=== PATIENT | female | born 1940 | race Caucasian/White ===

== ENCOUNTER 2018-03-14 17:42 | Emergency (ER) | payer OTHER, BC ==
--- NOTE | 2018-03-14 19:14 | EDPHY ---
H & P Stated Complaint: FELL SATURDAY/?COCCYX FX ON XRAYS TODAY Time Seen by Provider: 03/14/18 18:37 HPI/ROS: CHIEF COMPLAINT: Buttock pain HISTORY OF PRESENT ILLNESS: This is a 77-year-old female with a history of coronary artery disease and COPD who presents 4 days after a fall onto her buttocks. This was a mechanical fall. She did not initially have pain but a couple of days later, when she got out of bed, she reports back pain. She has been traveling. She was seen by a doctor in [place] who prescribed Flexeril and tramadol. She has been taking the tramadol twice daily and the Flexeril once daily. She continues with pain which she states is in her left buttock, sometimes radiating into the hip. She has not had numbness and is not aware of weakness but it is painful when she tries to move or walk. She denies bowel or bladder problems. She was seen at [facility] today and Xrays of the lumbar sacral spine film was obtained. Xrays show an L4-5 grade 1 spondylolisthesis. She was advised to be evaluated in the emergency department , apparently because of this x-ray finding. REVIEW OF SYSTEMS: A ten point review of systems was performed and is negative with the exception of the items mentioned in the HPI. Past medical history: 1. Coronary artery disease status post stenting 2. Pacemaker/defibrillator 3. COPD with continue tobacco abuse 4. Uterine cancer, sarcoma Past surgical history: 1. Pacemaker 2. Hysterectomy Social history: She is here visiting family but used to live in [place]. She smokes cigarettes daily but tells me she quit 2 weeks ago. Daily single alcoholic beverage. General Appearance: Alert. Vital signs reviewed. Eyes: Pupils equal and round, no conjunctival injection, no discharge. Anicteric. ENT, Mouth: Mucous membranes are moist, no oropharyngeal erythema or edema. Neck: No lymphadenopathy, supple. Respiratory: Lungs are clear to auscultation; no wheezes, rales, or rhonchi. Cardiovascular: Regular rate and rhythm; no murmur, rub, or gallop. Gastrointestinal: Abdomen is soft and nontender, no masses or organomegaly, bowel sounds normal. Skin: Warm and dry, no rashes on exposed skin, normal color. Back: Nontender to palpation over the thoracolumbar spine. No CVAT. Extremities: No lower extremity edema, no calf tenderness or swelling. Neurological: Alert and oriented. Moving all four extremities easily and equally, but complains of pain when she moves to sit or get up out of the bed. She has tenderness with palpation of the left buttock in the sciatic notch region. Strength is 5/5 with bilateral testing of hip flexion, hip extension, knee flexion, knee extension, plantar flexion, dorsiflexion, and EHL. She is able to walk although her gait is somewhat antalgic because of pain. She does not have a footdrop. Sensation is intact to light touch over both lower extremities. Deep tendon reflexes are 2+ in the knees and the right ankle, absent in the left ankle. Psychiatric: Normal affect. - Personal History Current Tetanus Diphtheria and Acellular Pertussis (TDAP): Yes - Medical/Surgical History Hx Asthma: No Hx Chronic Respiratory Disease: Yes Hx Diabetes: No Hx Cardiac Disease: Yes Hx Renal Disease: No Hx Cirrhosis: No Hx Alcoholism: No Hx HIV/AIDS: No Hx Splenectomy or Spleen Trauma: No Other PMH: CARDIAC STENTS/PACEMAKER/DEFIB COPD OSTEOPENIA - Social History Smoking Status: Former smoker Constitutional: Initial Vital Signs Temperature (C) 37.4 C 03/14/18 18:03 Heart Rate 85 03/14/18 18:03 Respiratory Rate 18 03/14/18 18:03 Blood Pressure 116/73 03/14/18 18:03 O2 Sat (%) 90 L 03/14/18 18:03 O2 Delivery Mode Room Air Allergies/Adverse Reactions: Sulfa (Sulfonamide Antibiotics) Allergy (Unknown, Verified 03/14/18 18:00) Home Medications: Medication Instructions Recorded Aspirin 81mg (*) 03/14/18 Carvedilol 03/14/18 Digoxin 03/14/18 Escitalopram Oxalate 03/14/18 Lisinopril 03/14/18 SIMVASTATIN 03/14/18 Spironolactone 03/14/18 Tramadol HCl 03/14/18 traMADol [Ultram 50 mg (*)] 50 mg PO Q6 #12 tab 03/14/18 Medical Decision Making ED Course/Re-evaluation: I was able to view the films that were taken elsewhere today (she brought CD). Spondylolisthesis likely longstanding. I do not suspect an acute fracture and am not recommending additional imaging at this time. Her pain is primarily in the buttock and is consistent with sciatica. I recommend symptomatic treatment. Danger signs reviewed with her. She will follow up with her PCP when she returns home. Differential Diagnosis: DDX includes but is not limited to back fracture, dislocation, sprain, radiculopathy, discitis or other infection, UTI/pyelonephritis, ureterolithiasis. - Data Points Medications Given: Discontinued Medications Tramadol HCl (Ultram) 50 mg PO EDNOW ONE Stop: 03/14/18 19:33 Last Admin: 03/14/18 19:42 Dose: 50 mg Departure - Departure Disposition: Home, Routine, Self-Care Clinical Impression: Sciatica Qualifiers: Laterality: left Qualified Code(s): M54.32 - Sciatica, left side Condition: Good Instructions: Sciatica (ED) Additional Instructions: I do not think that you have a broken bone in your back. I do think that you have sciatica--pressure on a nerve root. Your neurologic function is normal today, which is reassuring. Continue with the tramadol as prescribed. You can also take the cyclobenzaprine, which is a muscle relaxant. I recommend that you try this at night. It can make you sleepy and somewhat uncoordinated. If you develop worsening pain, new weakness, or trouble with control of your bowels or bladder--you should be seen again right away. Please follow up with your primary care physician when you return home. Referrals: CHARMAINE ESCAMILLA [Other] - As per Instructions Prescriptions: traMADol [Ultram 50 mg (*)] 50 mg PO Q6 #12 tab
[2018-03-14] MEDS ORDERED: traMADol 50 MG TAB PO ONE (19:32)
[2018-03-14 20:40] VITALS: BP 126/88
== END 2018-03-14 20:42 | disposition home or self-care (01) ==
DX: M54.32 Sciatica, left side (principal); I25.810 Atherosclerosis of coronary artery bypass graft(s) without angina pectoris; J44.9 Chronic obstructive pulmonary disease, unspecified; Z79.82 Long term (current) use of aspirin; Z85.42 Personal history of malignant neoplasm of other parts of uterus; Z87.891 Personal history of nicotine dependence; Z95.0 Presence of cardiac pacemaker